=== PATIENT | male | born 1955 | race Caucasian/White ===

== ENCOUNTER 2018-07-18 16:37 | Emergency (ER) | payer SELFPAY ==
[~2018-07-18] VITALS: Ht 172.7 cm; Wt 68.2 kg
[~2018-07-18 16:37] MED LIST: HYDR-309 PO
[2018-07-18] MEDS ORDERED: IBUPROFEN 800 MG TABLET PO ONE (18:00)
[2018-07-18] MEDS ORDERED: POVIDONE-IODINE 10% 15 ML SOLUTION UD TP ONE (18:00)
[2018-07-18] MEDS ORDERED: BACITRACIN 0.9 GM PACKET OINTMENT TP ONE (18:00)
[2018-07-18] MEDS ORDERED: PERTUSS(ACELL),DIPH,TET VAC/PF 0.5 ML VIAL IM ONE (18:30)
[2018-07-18 18:56] VITALS: BP 127/77
== END 2018-07-18 19:23 | disposition home or self-care (01) ==
LOC: EMS 16:38
DX: S91.332A Puncture wound without foreign body, left foot, initial encounter (principal); L03.116 Cellulitis of left lower limb; F12.90 Cannabis use, unspecified, uncomplicated; W45.0XXA Nail entering through skin, initial encounter; Y93.89 Activity, other specified; Y92.89 Other specified places as the place of occurrence of the external cause; Y99.8 Other external cause status
CPT/HCPCS: 90471; 90715

== ENCOUNTER 2021-03-11 13:32 | Emergency (ER) | payer MEDICAID ==
[~2021-03-11] VITALS: Ht 170.2 cm; Wt 54.5 kg
[2021-03-11] MEDS ORDERED: IBUPROFEN 600 MG TABLET PO ONE (14:45)
[2021-03-11 16:13] VITALS: BP 143/72
== END 2021-03-11 17:11 | disposition home or self-care (01) ==
LOC: EMS 13:32
DX: S93.402A Sprain of unspecified ligament of left ankle, initial encounter (principal); F12.90 Cannabis use, unspecified, uncomplicated; X50.1XXA Overexertion from prolonged static or awkward postures, initial encounter; Y93.89 Activity, other specified; Y92.89 Other specified places as the place of occurrence of the external cause; Y99.8 Other external cause status
CPT/HCPCS: 29515; 99284; 73610-TC; 73630-TC; Z7502; Z7610

== ENCOUNTER 2021-08-07 21:45 | Emergency (ER) | payer MEDICAID ==
[~2021-08-07] VITALS: Ht 172.7 cm; Wt 63.6 kg
[2021-08-07 22:35] VITALS: BP 142/77
[2021-08-07] MEDS ORDERED: IBUPROFEN 600 MG TABLET PO ONE (23:15)
[2021-08-07] MEDS ORDERED: HYDROCODONE/ACETAMINOPHEN 5-325 MG TABLET PO ONE (23:15)
== END 2021-08-08 00:23 | disposition home or self-care (01) ==
LOC: EMS 21:48
DX: S20.211A Contusion of right front wall of thorax, initial encounter (principal); F12.90 Cannabis use, unspecified, uncomplicated; Z79.899 Other long term (current) drug therapy; W01.198A Fall on same level from slipping, tripping and stumbling with subsequent striking against other object, initial encounter; Y93.89 Activity, other specified; Y92.89 Other specified places as the place of occurrence of the external cause; Y99.8 Other external cause status
CPT/HCPCS: 71100; 99283

== ENCOUNTER 2023-08-14 16:01 | Emergency (ER) | payer MEDICAID, OTHER ==
[~2023-08-14] VITALS: Ht 180.3 cm; Wt 75.0 kg
[2023-08-14 16:06] VITALS: TEMP 98.5
[2023-08-14] MEDS ORDERED: IBUPROFEN 600 MG TABLET PO ONE (18:30)
[2023-08-14 18:43] VITALS: BP 118/82; PULSE 88; RESP 18
== END 2023-08-14 18:48 | disposition home or self-care (01) ==
LOC: EMS 16:02
DX: S62.306A Unspecified fracture of fifth metacarpal bone, right hand, initial encounter for closed fracture (principal); F12.90 Cannabis use, unspecified, uncomplicated; X58.XXXA Exposure to other specified factors, initial encounter; Y93.89 Activity, other specified; Y92.89 Other specified places as the place of occurrence of the external cause; Y99.8 Other external cause status
CPT/HCPCS: 99283